=== PATIENT | male | born 2000 | race Two or more races ===

== ENCOUNTER 2022-09-09 15:10 | Emergency (ER) | payer MEDICAID, OTHER ==
[~2022-09-09] VITALS: Ht 180.3 cm; Wt 80.7 kg
[2022-09-09 18:44] VITALS: BP 148/43
== END 2022-09-09 18:49 | disposition home or self-care (01) ==
LOC: ER 15:10
DX: S39.012A Strain of muscle, fascia and tendon of lower back, initial encounter (principal); X50.1XXA Overexertion from prolonged static or awkward postures, initial encounter; Y93.89 Activity, other specified; Y92.89 Other specified places as the place of occurrence of the external cause; Y99.8 Other external cause status
CPT/HCPCS: 71046; 72100; 93005

== ENCOUNTER 2022-09-20 11:36 | Emergency (ER) | payer MEDICAID ==
[~2022-09-20] VITALS: Ht 180.3 cm; Wt 87.1 kg
[2022-09-20 11:50] VITALS: BP 145/78
[2022-09-21] MEDS ORDERED: BACDST PO (04:49)
== END 2022-09-20 13:37 | disposition home or self-care (01) ==
LOC: ER 11:36
DX: D17.0 Benign lipomatous neoplasm of skin and subcutaneous tissue of head, face and neck (principal); F12.90 Cannabis use, unspecified, uncomplicated
CPT/HCPCS: 70450

== ENCOUNTER 2022-09-20 15:14 | Emergency (ER) | payer MEDICAID ==
[~2022-09-20] VITALS: Ht 180.3 cm; Wt 79.4 kg
[2022-09-20] MEDS ORDERED: SODIUM CHLORIDE 0.9% 1,000 ML IV ONE ×3 (15:30→16:30)
[2022-09-20] MEDS ORDERED: LORazepam 2MG/ML-1ML VIAL ONE (15:51)
[2022-09-20] MEDS ORDERED: LORazepam 2MG/ML-1ML VIAL IV ONE (16:00)
[2022-09-20 16:10] LABS: Basophils # (auto) 0.1 10 ^3/uL (0-0.2); Basophils % (auto) 0.5 % (0.0-2.0); Eosinophils # (auto) 0 10 ^3/uL (0-0.8); Eosinophils % (auto) 0.3 % (0.0-7.0); Hematocrit 48.8 % (41.0-53.0); Hemoglobin 16.8 g/dL (13.5-17.5); Lymphocytes # (auto) 2.9 10 ^3/uL (0.4-5.4); Lymphocytes % (auto) 23.3 % (10.0-50.0); Mean Corpuscular Hgb Conc. 34.4 g/dL (32.0-36.0); Mean Corpuscular Volume 84.3 fL (80.0-100.0); Monocytes # (auto) 0.5 10 ^3/uL (0-1.3); Neutrophils # (auto) 8.9 10 ^3/uL (1.6-8.6); Neutrophils % (auto) 71.9 % (37.0-80.0); Red Blood Cells 5.79 10^6/uL (4.5-5.90); Red Cell Distribution Width 13.1 % (11.8-14.3); White Blood Cell 12.4 10^3/uL (4.4-10.8)
[2022-09-20 16:27] LABS: Albumin 4.8 g/dL (3.4-5.0); Calcium 9.1 mg/dL (8.5-10.1); Potassium 3.4 mmol/L (3.5-5.1)
[2022-09-20 16:35] LABS: BUN/Creatinine Ratio 11.3; Bilirubin, Total 0.6 mg/dL (0.2-1.0); Total Protein 7.3 g/dL (6.4-8.2)
[2022-09-20 18:41] LABS: Urine WBC None Seen /hpf (0 - 3)
[2022-09-20 18:55] LABS: Urine Bacteria NONE SEEN /hpf (None Seen); Urine Blood Negative /uL (Negative); Urine Mucus FEW (None Seen); Urine Specific Gravity 1.011 (1.001-1.035)
[2022-09-20 19:04] LABS: Amphetamine Screen, Urine NEGATIVE (NEGATIVE); Barbiturate Scree,Urine NEGATIVE (NEGATIVE); Benzodiazephine Screen, Urine NEGATIVE (NEGATIVE); Cannabinoid Screen, Urine POSITIVE (NEGATIVE); Cocaine Screen, Urine NEGATIVE (NEGATIVE); Opiate Scree,Urine NEGATIVE (NEGATIVE)
[2022-09-20 19:12] LABS: Phencyclidine Screen, Urine NEGATIVE (NEGATIVE)
[2022-09-21 04:00] VITALS: BP 105/48
[2022-09-21] MEDS ORDERED: BACDST PO (04:49)
== END 2022-09-21 05:27 | disposition home or self-care (01) ==
LOC: ER 15:18
DX: G93.41 Metabolic encephalopathy (principal); N39.0 Urinary tract infection, site not specified; F12.90 Cannabis use, unspecified, uncomplicated
CPT/HCPCS: 36415; 70450; 71045; 80053; 80307; 81001; 85025; 85379; 93005; 96361; 96374; 99285; J2060; J7030

== ENCOUNTER 2025-04-06 11:03 | Emergency (ER) | payer MEDICAID ==
[~2025-04-06] VITALS: Ht 175.3 cm; Wt 100.9 kg
[~2025-04-06 11:03] MED LIST: BACDST PO
--- NOTE | 2025-04-06 11:24 | ED.PDOC ---
History of Present Illness HPI Comments 24-year-old male with no significant past medical history brought in by private car complaining of left upper chest pressure-like discomfort for the last 2 days, associated with dizziness. Patient states I feel like I have a clogged vein because I can't swallow. When asked for additional details. Patient acknowledges that he is able to swallow food and liquids, however he experiences discomfort in his throat due to acid reflux, however the chest discomfort is localized to the left superior lateral chest and anterior axillary areas. He denies any fever, cough, shortness of breath, change in activity, extremity edema or discoloration. Chief Complaint: General Weakness Time Seen by MD: 11:18 Primary Care Provider: LAILA Gale Notes: Medications, Allergies Allergies: Coded Allergies: NO KNOWN ALLERGIES (Unverified , 09/09/22) Home Meds Active Scripts Sulfamethoxazole W/Trimethopri (Bactrim Ds Tablet) 1 Tab Tb, 1 TAB PO BID for 7 Days, #14 TAB Prov:SARTHAK SOLORZANO MD 09/21/22 Information Source: Patient Mode of Arrival: Ambulatory Severity: Moderate Timing: Days Duration: Since onset Prehospital treatment: None Past Medical History PAST MEDICAL HISTORY: Denies Surgical History: Denies all surgeries Family History Family History: Reviewed,noncontributory to illness Family History (Other): Denies family history of CAD or VTE Social History Smoker: Non-Smoker, Other Alcohol: Denies ETOH Use Drugs: Marijuana Lives In: Home Constitutional: denies: chills, diaphoresis, fatigue, fever, malaise, sweats, weakness, others EENTM: denies: blurred vision, double vision, ear bleeding, ear discharge, ear drainage, ear pain, ear ringing, eye pain, eye redness, hearing loss, mouth pain, mouth swelling, nasal discharge, nose bleeding, nose congestion, nose pain, photophobia, tearing, throat pain, throat swelling, voice changes, others Respiratory: denies: cough, hemoptysis, orthopnea, SOB at rest, shortness of breath, SOB with excertion, stridor, wheezing, others Cardiovascular: denies: chest pain, dizzy spells, diaphoresis, Dyspnea on exertion, edema, irregular heart beat, left arm pain, lightheadedness, palpitations, PND, syncope, others Gastrointestinal: denies: abdomen distended, abdominal pain, blood streaked bowels, constipated, diarrhea, dysphagia, difficulty swallowing, hematemesis, melena, nausea, poor appetite, poor fluid intake, rectal bleeding, rectal pain, vomiting, others Genitourinary: denies: burning, dysuria, flank pain, frequency, hematuria, inco ntinence, penile discharge, penile sore, pain, testicle pain, testicle swelling, urgency, others Neurological: denies: dizziness, fainting, headache, left sided numbness, left sided weakness, numbness, paresthesia, pre-existing deficit, right sided numbness, right sided weakness, seizure, speech problems, tingling, tremors, weakness, others Musculoskeletal: reports: muscle pain; denies: back pain, gout, joint pain, joint swelling, muscle stiffness, neck pain, others Integumetry: denies: bruises, change in color, change in hair/nails, dryness, laceration, lesions, lumps, rash, wounds, others Allergic/Immunocompromised: denies: Difficulty Healing, Frequent Infections, Hives, Itching, others Hematologic/Lymphatic: denies: anemia, blood clots, easy bleeding, easy bruising, swollen glands, others Endocrine: denies: excessive hunger, excessive sweating, excessive thirst, excessive urination, flushing, intolerance to cold, intolerance to heat, unexplained weight gain, unexplained weight loss, others Psychiatric: denies: anxiety, bipolar disorder, depression, hopeless, panic disorder, schizophrenia, sleepless, suicidal, others All Other Systems: Reviewed and Negative Physical Exam General Appearance: No Apparent Distress, Obese HEENT: Other (Pupils and face symmetric. Moist mucous membranes.) Neck: Full Range of Motion, Normal Inspection Respiratory: Chest Non-Tender, Lungs Clear, No Accessory Muscle Use, No Respiratory Distress, Normal Breath Sounds Cardiovascular: No Edema, No JVD, Regular Rate/Rhythm Breast Exam: Deferred Gastrointestinal: Non Tender, Soft Genitalia: Deferred Pelvic: Deferred Rectal: Deferred Extremities: Normal inspection, Normal range of motion, Non-tender, No pedal edema Neurologic: Alert (Oriented x4), Other (Appears anxious. Ambulatory.) Cerebellar Function: NOT DONE Reflexes: NOT DONE Skin: Dry, Normal Color, Warm Lymphatic: NOT DONE Was a procedure done? Was a procedure done?: No Differential Dx Considerations may include: Anxiety, arrhythmia, ACS, NV, PE, chest wall pain, among others X-Ray, Labs, Meds, VS Vital Signs Date Time Temp Pulse Resp B/P (MAP) Pulse Ox O2 Delivery O2 Flow Rate FiO2 04/06/25 11:34 98.7 99 14 154/101 (118) 100 98.7 04/06/25 11:34 99 14 100 Room Air 04/06/25 11:05 98.1 95 18 148/100 95 98.1 Lab Test 04/06/25 12:58 04/06/25 11:50 Range/Units Troponin I High Sensitivity < 3 L < 3 L </=54 ng/L White Blood Count 11.6 H 4.4-10.8 10^3/uL Red Blood Count 6.65 H 4.5-5.90 10^6/uL Hemoglobin 19.2 H 13.5-17.5 g/dL Hematocrit 54.0 H 41.0-53.0 % Mean Corpuscular Volume 81.2 80.0-100.0 fL Mean Corpuscular Hemoglobin 28.8 28.0-32.0 pg Mean Corpuscular Hemoglobin Concent 35.5 32.0-36.0 g/dL Red Cell Distribution Width 13.9 11.8-14.3 % Platelet Count 302 140-450 10^3/uL Mean Platelet Volume 9.3 6.9-10.8 fL Neutrophils (%) (Auto) 71.6 37.0-80.0 % Lymphocytes (%) (Auto) 19.6 10.0-50.0 % Monocytes (%) (Auto) 5.2 0.0-12.0 % Eosinophils (%) (Auto) 3.2 0.0-7.0 % Basophils (%) (Auto) 0.4 0.0-2.0 % Neutrophils # (Auto) 8.3 1.6-8.6 10 ^3/uL Lymphocytes # (Auto) 2.3 0.4-5.4 10 ^3/uL Monocytes # (Auto) 0.6 0-1.3 10 ^3/uL Eosinophils # (Auto) 0.4 0-0.8 10 ^3/uL Basophils # (Auto) 0.1 0-0.2 10 ^3/uL Nucleated Red Blood Cells 0.1 % D-Dimer, Quantitative < 0.19 0.0-0.49 mg/L FEU Sodium Level 141 136-145 mmol/L Potassium Level 3.9 3.5-5.1 mmol/L Chloride Level 104 98-107 mmol/L Carbon Dioxide Level 28 20-31 mmol/L Anion Gap 9 5-15 Blood Urea Nitrogen 12 9-23 mg/dL Creatinine 1.22 0.700-1.30 mg/dL Glomerular Filtration Rate Calc 86 >90 mL/min BUN/Creatinine Ratio 9.8 L 10.0-20.0 Serum Glucose 131 H 74-106 mg/dL Calcium Level 10.1 8.7-10.4 mg/dL B-Type Natriuretic Peptide < 0 0-100 pg/mL Chest x-ray one view: Independently interpreted by me. No acute disease. Cardiac silhouette normal size, no definite infiltrate or effusion, normal mediastinal width, grossly normal bony thorax, no free air, no pneumothorax. X-Ray, Labs, Meds, VS Comment 24-year-old male with no significant past medical history brought in by private car complaining of left upper chest wall discomfort Vitals remarkable for BP 148/100 Exam unremarkable Rhythm strip independently interpreted by me: Sinus rhythm, rate 95, no ectopy. Chest x-ray unremarkable CBC, basic metabolic panel, BNP, troponin, D-dimer remarkable The following was ordered for the patient in the ED: Ativan 1 mg p.o., Toradol 45 mg IM . Patient declined any medication. On re-evaluation exam was unchanged. Hospitalization was considered, however workup was essentially unremarkable. Elevated blood pressure may be due to anxiety. Patient declined any anxiety medication, so blood pressure did remain slightly elevated, however he was otherwise asymptomatic on re-evaluation, and I no longer feel hospitalization is necessary. Patient appears stable for discharge with close outpatient follow-up with his primary physician for blood pressure recheck. Time of 1ST Reevaluation: 11:48 Reevaluation 1ST: Unchanged Time of 2ND Reevaluation: 14:47 Reevaluation 2ND: Improved Patient Education/Counseling: Diagnosis, Treatment, Need For Follow Up Family Education/Counseling: No Family Present SEPSIS Sepsis Screen Date sepsis recognized/suspect: Apr 06, 2025 Time Sepsis recognized/suspect: 1106 Recent Procedure: No On Antibiotic Therapy: No Respiratory Rate >20: No Heart Rate >90: Yes Temp<36 C (96.8 F) or >38.3 C: No SBP <90 or MAP <65 mmHG: No New Acute Mental Status Change: No Is the patient on CPAP, BIPAP,: No SEPSIS EXCLUSION NOTE: Sepsis Exclusion Note: Patient presents with SIRS criteria, but the SIRS response is attributed to [anxiety ], not a suspected infection. Sepsis bundle is not initiated at this time, due to this reason. Further management will focus on the treatment of the above condition (s). Physician Orders Urinalysis (04/06/25 11:23) Drug Screen (04/06/25 11:23) Troponin-I Hs (04/06/25 14:23) Electrocardigram (04/06/25 11:23) Electrocardigram (04/06/25 12:23) Electrocardigram (04/06/25 14:23) Chest Xray 1 View (04/06/25 14:15) Vital Signs Date Time Temp Pulse Resp B/P (MAP) Pulse Ox O2 Delivery O2 Flow Rate FiO2 04/06/25 11:34 98.7 99 14 154/101 (118) 100 98.7 04/06/25 11:34 99 14 100 Room Air 04/06/25 11:05 98.1 95 18 148/100 95 98.1 Laboratory Tests Test 04/06/25 11:50 White Blood Count 11.6 10^3/uL (4.4-10.8) H Departure 1 Departure Time of Disposition: 14:47 Impression: Primary Impression: Chest pain with low risk for cardiac etiology Additional Impression: Episode of hypertension Disposition: HOME / SELF CARE / HOMELESS Condition: Stable Additional Instructions: Your blood tests, including screening tests for heart attack, heart failure and blood clots, were unremarkable. Your chest x-ray was normal. I have prescribed medication for pain. Follow-up with your primary doctor in 1-2 days for further evaluation of your blood pressure. e-Prescriptions Omeprazole Magnesium (Omeprazole) 20 Mg Tab 20 MG PO DAILY, #30 TAB Prov: SHELLEY HONG MD 04/06/25 Ibuprofen Micronized (Ibuprofen) 600 Mg Tab 600 MG PO Q6HP PRN, #30 TAB Prn pain. Take with food. Prov: SHELLEY HONG MD 04/06/25 Discharged With: Relative Critical Care Note Critical Care Time?: No Stability Stability form required: No Heart Score Heart Score: Heart Score Response (Comments) Value History Slightly Suspicious 0 EKG Repolarization Disturb 1 Age <45 0 Risk Factors No known risk factors 0 Troponin Normal limit 0 Total 1 I personally scribed for SHELLEY HONG MD ([email or web address]) on 04/06/25 at 11:24. Electronically submitted by Andres Silva [email or web address]). SHELLEY HONG MD Apr 06, 2025 11:24
[2025-04-06] MEDS: KETOROLAC TROMETH 60MG/2ML VIAL IM ONE (11:30)
[2025-04-06] MEDS: LORazepam 0.5 MG TAB PO ONE (11:30)
[2025-04-06 12:05] LABS: Mean Corpuscular Hemoglobin 28.8 pg (28.0-32.0)
[2025-04-06 12:07] LABS: Chloride 104 mmol/L (98-107); Potassium 3.9 mmol/L (3.5-5.1); Sodium 141 mmol/L (136-145)
[2025-04-06 12:08] LABS: Anion Gap 9 (5-15); Calcium 10.1 mg/dL (8.7-10.4); Carbon Dioxide 28 mmol/L (20-31); Hematocrit 54.0 % (41.0-53.0); Hemoglobin 19.2 g/dL (13.5-17.5); Mean Corpuscular Volume 81.2 fL (80.0-100.0); Nucleated Red Blood Cells % 0.1 %
[2025-04-06 12:13] LABS: BUN/Creatinine Ratio 9.8 (10.0-20.0); Blood Urea Nitrogen 12 mg/dL (9-23)
[2025-04-06 12:16] LABS: Glucose 131 mg/dL (74-106)
--- NOTE | 2025-04-06 14:42 | DVH ---
AP portable chest CLINICAL INDICATION: cp FINDINGS: Heart size is normal. No infiltrates or effusions. No bony thoracic abnormalities. IMPRESSION: 1. Normal chest x-ray.
[2025-04-06 14:47] VITALS: BP 156/94; PULSE 70; RESP 16; TEMP 98.3; O2SAT 97
[2025-04-06 14:54] LABS: Urine Protein, UAD Negative (Negative)
[2025-04-06] MEDS ORDERED: IBUP1TAB5 PO (14:55)
[2025-04-06] MEDS ORDERED: OMEP-434 PO (14:55)
[2025-04-06 16:07] LABS: Amphetamine Screen, Urine Neg (NEGATIVE); Barbiturate Scree,Urine Neg (NEGATIVE); Benzodiazephine Screen, Urine Neg (NEGATIVE); Cannabinoid Screen, Urine Neg (NEGATIVE); Cocaine Screen, Urine Neg (NEGATIVE); Opiate Scree,Urine Neg (NEGATIVE); Phencyclidine Screen, Urine Neg (NEGATIVE)
== END 2025-04-06 15:18 | disposition home or self-care (01) ==
LOC: ER 11:03
DX: R07.89 Other chest pain (principal); I10 Essential (primary) hypertension; F12.90 Cannabis use, unspecified, uncomplicated; Z79.899 Other long term (current) drug therapy
CPT/HCPCS: 36415; 71045; 80048; 80307; 81001; 83880; 84484; 85025; 85379; J1885